=== PATIENT | female | born 1970 | race Caucasian/White ===

== ENCOUNTER 2022-12-29 10:15 | Outpatient (CLI) | payer MEDICARE, MEDICAID ==
[~2022-12-29] VITALS: Ht 1 cm; Wt 1.0 kg
--- NOTE | 2022-12-29 12:26 | Progress Note-Post Operative ---
Post-Operative Progess Note Surgeon (s)/Window Systems Administrator (s) Surgeon DIANNE TRUJILLO DO Window Systems Administrator: none Pre-Operative Diagnosis Malfunctioning Gastrostomy tube Post-Operative Diagnosis same Procedure & Operative Findings Date of Procedure 12/29/22 Procedure Performed/Findings Gastrostomy tube replacement Anesthesia Type none Estimated Blood Loss Estimated blood loss (mL): none Specimens/Packing Specimens Removed none Packin DIANNE TRUJILLO DO Dec 29, 2022 12:26
[2022-12-29 12:41] VITALS: BP 156/78
--- NOTE | 2022-12-29 21:00 | OPERATIVE REPORT ---
DATE OF SERVICE: 12/29/2022 PREOPERATIVE DIAGNOSIS:. Malfunctioning gastrostomy tube. POSTOPERATIVE DIAGNOSIS: Malfunctioning gastrostomy tube. PROCEDURE: Gastrostomy tube replacement. SURGEON: Rafal Renae DO INTERNAL INVESTIGATOR: None. ANESTHESIA: None. BLOOD LOSS: None. SPECIMENS: None. INDICATIONS FOR PROCEDURE: The patient is a 52-year-old female. She has a gastrostomy tube that really has not been used in over a year, but she has had episodes of sepsis for which she cannot eat and they leaved the G-tube. The G-tube itself was black, looks like it is about to break down and very poor order, needed to get this replaced. I did have a discussion with the patient's mother regarding this tube and the fact that if we pull it out, it could break off just because it looks like it is almost rotten and may be needed to do EGD or leave it in there and led to get come out with fecal material. She was okay with this. DESCRIPTION OF PROCEDURE: After informed consent, the patient was in the endoscopy preop in bed. I carefully was able to pull this tube out and get the inner portion that came right out with ease. I then placed an 18-Telugu G-tube back through the fistulous opening. This went in easily, able to flush it, I blew up the balloon and then able to flush and got back some of this fluid, placed a drain sponge underneath this, held down with the bolster. The patient tolerated the procedure and she was then sent home. Job ID: [id number] DocumentID: [id number] Dictated Date: 12/29/2022 12:26:03 Benefits Coordinator Date: 12/29/2022 20:59:00 Dictated By: RAFAL RENAE DO
== END 2022-12-29 11:25 | disposition home or self-care (01) ==
LOC: SDC 10:15 → ENDO 11:25
PROVIDERS: ATTEND Surgery
DX: K94.23 Gastrostomy malfunction (principal); E66.9 Obesity, unspecified; Z28.310 Unvaccinated for COVID-19; Z68.34 Body mass index [BMI] 34.0-34.9, adult